=== PATIENT | female | born 1975 | race Caucasian/White ===

== ENCOUNTER 2020-03-30 13:31 | Outpatient (REF) | payer OTHER, SELFPAY | END 2020-03-30 13:32 | disposition home or self-care (01) | LOC: HO.LAB 13:31 | PROVIDERS: Visit Provider Internal Medicine | DX: Z20.828 Contact with and (suspected) exposure to other viral communicable diseases (principal) | CPT/HCPCS: C9803; U0003 ==

== ENCOUNTER 2020-04-13 16:28 | Outpatient (REF) | payer OTHER, SELFPAY | END 2020-04-13 16:29 | disposition home or self-care (01) | LOC: HO.LAB 16:28 | PROVIDERS: Visit Provider Nurse Practitioner Family | DX: N10 Acute pyelonephritis (principal) | CPT/HCPCS: 87086 ==

== ENCOUNTER 2020-09-05 06:36 | Emergency (ER) | payer OTHER, SELFPAY ==
--- NOTE | ~2020-09-05 | XR_ITS ---
EXAMINATION: XR CHEST CLINICAL INFORMATION: Chest pain COMPARISON: None TECHNIQUE: AP portable view of the chest was obtained. FINDINGS: No significant abnormality is noted involving the heart, lungs, mediastinum, bony thorax or soft tissues. XR/XR chest 1V IMPRESSION: No acute disease.
--- NOTE | 2020-09-05 07:05 | ED.CHESTPAIN ---
HPI - Chest Pain General Chief Complaint: Chest Pain Stated Complaint: Chest tightness/Dizziness Time Seen by Provider: 09/05/20 06:51 Source: patient Mode of arrival: ambulatory Limitations: no limitations History of Present Illness HPI narrative: 45 yo female no sig PMH here with chest pain x 3 days on and off feels her L arm gets tingling too, no OCPs, feels slightly short of breath as well, denies increased stress at home MD complaint: chest pain Onset (ago): day(s) (3) Timing of current episode: episodic Prior episodes: No Onset: during rest and during exertion Pain location: substernal Pain radiation: left arm Severity: moderate Quality: aching Relieving factors: nothing Exacerbating factors: nothing Associated symptoms: dyspnea Treatment prior to arrival: none Related Data Home Medications Medication Instructions Recorded Confirmed flu vac qs 2019(4 yr up)CD(PF) ml IM 04/13/20 Previous Rx's Medication Instructions Recorded ciprofloxacin HCl 500 mg tablet 500 mg PO Q12H 7 Days #14 tab 04/13/20 phenazopyridine 100 mg tablet 100 mg PO TID PRN #6 tab 04/13/20 cyclobenzaprine 10 mg PO TID PRN #14 tab 09/05/20 ferrous sulfate 325 mg PO DAILY #30 tab 09/05/20 Allergies Allergy/AdvReac Type Severity Reaction Status Date / Time almond Allergy Intermediate TONGUE Unverified 02/11/20 14:59 SWELLING apple [Apple] Allergy Intermediate TONGUE Unverified 02/11/20 14:59 SWELLING morphine [Morphine] Allergy Mild RASH, Unverified 02/11/20 14:59 stomach upset acetaminophen [Percocet] Allergy Unknown stomach Verified 10/04/17 00:00 upset oxycodone [OXYCODONE] Allergy Unknown ITCHY Unverified 02/11/20 14:59 aspirin AdvReac Unknown stomach Verified 10/04/17 00:00 upset apples Allergy Unknown anaphylaxis Uncoded 10/04/17 00:00 nuts Allergy Unknown anaphylaxis Uncoded 10/04/17 00:00 Review of Systems Review of Systems: Constitutional : No Weight loss, No Fever, No Chills ENT/Mouth : No sore throat, No Rhinorrhea Eyes: No Eye Pain, No Swelling Cardiovascular : pos Chest Pain, pos SOB, no Dyspnea on Exertion, No Orthopnea, No Edema, No Palpitations Respiratory : No Cough, No Sputum Gastrointestinal : pos Nausea, No Vomiting, No Diarrhea, No abdominal Pain, No Hematochezia, No Melena Genitourinary : No Dysuria, No Urinary Frequency Musculoskeletal : No joint pain, No Myalgias, No Joint Swelling Skin : No Skin Lesions, No rash Neuro : No Weakness, No Numbness, No Dizziness, No Headache Psych : No Anxiety/Panic, No Depression Heme/Lymph: No Bruising, No Lymphadenopathy Endocrine : No Polyuria, No Polydipsia All other systems reviewed and are negative REPLACED BY [facility] Past Medical History Attestation statement: The following information was validated with the patient. Medical History (Updated 09/05/20 @ 08:26 by Mana Snowden DO) Urinary tract infection Surgical History (Updated 09/05/20 @ 07:27 by Mana Snowden DO) H/O: hysterectomy Social History Social History (Updated 09/05/20 @ 07:27 by Mana Snowden DO) Smoking Status: Never smoker Use of substances other than those prescribed or required for medical reasons: No Advance Directives: Yes Advance Directives Information Provided: Yes Advance Directives on File: No Physical Exam Vital Signs: Vital Signs: Last Vital Signs Temp 98.8 F 09/05/20 07:18 Pulse 90 09/05/20 07:18 Resp 18 09/05/20 07:18 BP 143/68 H 09/05/20 07:18 Pulse Ox 100 09/05/20 07:18 Body Mass Index 31.3 Appearance: Alert. Oriented X3. No acute distress. Eyes: Pupils equal, round and reactive to light. ENT: Pharynx normal. Neck: Normal inspection. Neck supple. CVS: Normal heart rate and rhythm. Pulses normal. Respiratory: No respiratory distress. Breath sounds normal. Abdomen: Soft and nontender. Skin: Skin warm and dry. Normal skin color. Normal skin turgor. Extremities: No lower extremity edema. No calf ttp Neuro: Oriented X 3. No motor deficit. No sensory deficit. Course Course Course Narrative: anemia - likely Fe will replace, no need for transfusion has no HD instability - negative work up at this time stable for DC MDM - Chest Pain MDM Narrative Medical decision making narrative: 45 yo female no sig PMH and no ACS risk factors PERC negative here with 3 days of intermittent chest pain at this time will need troponin x 1, her BPs are symmetric R 136/68 and L 143/68 doubt dissection, she is NV intact, bounding L sided radial pulse and CMS intact, atypical chest pain in nature, dispo per results and findings - labs EKG CXR ordered Lab Data Result diagrams: 09/05/20 07:36 09/05/20 07:36 Labs: Lab Results 09/05/20 09/05/20 09/05/20 Range/Units 07:36 07:36 07:36 WBC 6.4 (4.8-10.8) X10*3/uL RBC 4.45 (4.20-5.50) X10*6/uL Hgb 9.8 L (12.0-16.0) g/dl Hct 33.2 L (37-47) % MCV 74.6 L (80-98) fL MCH 22.0 L (27.0-33.0) pg MCHC 29.5 L (31.0-35.0) g/dl RDW 15.6 (11.0-16.0) % Plt Count 218 (160-400) X10*3/uL MPV 10.5 (9.4-12.3) fL Immature Gran % (Auto) 0.3 (0.0-0.4) % Neut % (Auto) 76.7 H (45-73) % Lymph % (Auto) 14.4 L (20-40) % [place] % (Auto) 6.1 (2-11) % Eos % (Auto) 2.2 (0-4) % Baso % (Auto) 0.3 (0-2) % Lymph # (Auto) 0.9 L (1.2-4.9) X10*3/uL [place] # (Auto) 0.4 (0.1-1.2) X10*3/uL Eos # (Auto) 0.1 (0.0-0.4) X10*3/uL Baso # (Auto) 0.0 (0.0-0.2) X10*3/uL Abs Immat Gran (auto) 0.02 (0.00-0.03) X10*3/uL Absolute Neuts (auto) 4.9 (2.0-8.3) X10*3/uL Absolute Nucleated RBC 0.000 (0.0-0.012) X10*3/uL Nucleated RBC % (auto) 0.0 (0.0-0.2) /100WBC PT 12.8 (10.8-13.0) SEC INR 1.1 (0.9-1.1) APTT 31.5 (24.1-38.0) SEC Troponin I High Sens < 3.5 (<3.5-17.0) ng/L Lipase COVID-19 ([facility]) (Negative) COVID-19 Clin Com 09/05/20 09/05/20 Range/Units 07:36 07:36 WBC (4.8-10.8) X10*3/uL RBC (4.20-5.50) X10*6/uL Hgb (12.0-16.0) g/dl Hct (37-47) % MCV (80-98) fL MCH (27.0-33.0) pg MCHC (31.0-35.0) g/dl RDW (11.0-16.0) % Plt Count (160-400) X10*3/uL MPV (9.4-12.3) fL Immature Gran % (Auto) (0.0-0.4) % Neut % (Auto) (45-73) % Lymph % (Auto) (20-40) % [place] % (Auto) (2-11) % Eos % (Auto) (0-4) % Baso % (Auto) (0-2) % Lymph # (Auto) (1.2-4.9) X10*3/uL [place] # (Auto) (0.1-1.2) X10*3/uL Eos # (Auto) (0.0-0.4) X10*3/uL Baso # (Auto) (0.0-0.2) X10*3/uL Abs Immat Gran (auto) (0.00-0.03) X10*3/uL Absolute Neuts (auto) (2.0-8.3) X10*3/uL Absolute Nucleated RBC (0.0-0.012) X10*3/uL Nucleated RBC % (auto) (0.0-0.2) /100WBC PT (10.8-13.0) SEC INR (0.9-1.1) APTT (24.1-38.0) SEC Troponin I High Sens (<3.5-17.0) ng/L Lipase Cancelled COVID-19 ([facility]) Negative (Negative) COVID-19 Clin Com See Note ECG Data ECG #1: Attestation: I personally reviewed and interpreted this ECG as follows: ECG interpretation date: 09/05/20 ECG interpretation time: 07:41 Interpretation: Rate: 67 Rhythm: NSR [place]: left Normal P waves. Normal NUBIA. Normal QRS complex. ST T wave : normal, no BASIM qTC: normal prior studies: no acute ischemia The study has been interpreted contemporaneously by me. . Discharge Plan Discharge Clinical Impression: Atypical chest pain Iron (Fe) deficiency anemia Qualifiers: Iron deficiency anemia type: unspecified iron deficiency Qualified Code(s): D50.9 - Iron deficiency anemia, unspecified Patient Disposition: Home, Self-Care Instructions: Chest Pain (ED), Anemia (ED) Additional Instructions: return to ED for any worsening symptoms or concerns Prescriptions: New cyclobenzaprine 10 mg tablet 10 mg PO TID PRN (Reason: muscle spasm) Qty: 14 RF: 0 ferrous sulfate 325 mg (65 mg iron) tablet 325 mg PO DAILY Qty: 30 RF: 0 No Action Flucelvax Quad (PF) 60 mcg (15 mcg x 4)/0.5 mL syringe IM RF: 0 ciprofloxacin HCl [Cipro] 500 mg tablet 500 mg PO Q12H 7 Days Qty: 14 RF: 0 phenazopyridine [Pyridium] 100 mg tablet 100 mg PO TID PRN (Reason: pain) Qty: 6 RF: 0 Referrals: James Bro MD [Primary Care Provider] - 5 days Stand Alone Forms: Work/School Release
[2020-09-05 07:18] VITALS: BP 143/68; PULSE 90; RESP 18; TEMP 37.1; O2SAT 100; BMI 31.3
--- NOTE | 2020-09-05 07:22 | ECG_ITS ---
Test Reason : CHEST PAIN Blood Pressure : / mmHG Vent. Rate : 067 BPM Atrial Rate : 067 BPM P-R Int : 126 ms QRS Dur : 074 ms QT Int : 368 ms P-R-T Axes : 021 002 -05 degrees QTc Int : 388 ms Normal sinus rhythm Normal ECG When compared with ECG of 25-SEP-2017 12:15, Nonspecific T wave abnormality no longer evident in Lateral leads Referred By: Mana Snowden Electronically Signed By:KEIRA CAMPUZANO
[2020-09-05 07:43] LABS: MANUAL DIFF FLAG NO
[2020-09-05 07:47] LABS: Basophils Percent Auto 0.3 % (0-2); Eosinophils Absolute Auto 0.1 X10*3/uL (0.0-0.4); Eosinophils Percent Auto 2.2 % (0-4); Hematocrit 33.2 % (37-47); Hemoglobin 9.8 g/dl (12.0-16.0); Imm Gran Abs Auto 0.02 X10*3/uL (0.00-0.03); Imm Gran Pct Auto 0.3 % (0.0-0.4); Lymphocytes Absolute Auto 0.9 X10*3/uL (1.2-4.9); Lymphocytes Percent Auto 14.4 % (20-40); Mean Corpuscular HGB Conc 29.5 g/dl (31.0-35.0); Mean Corpuscular Volume 74.6 fL (80-98); Mean Platelet Volume 10.5 fL (9.4-12.3); Monocytes Absolute Auto 0.4 X10*3/uL (0.1-1.2); Monocytes Percent Auto 6.1 % (2-11); Neutrophils Absolute Auto 4.9 X10*3/uL (2.0-8.3); Neutrophils Percent Auto 76.7 % (45-73); Platelet Count 218 X10*3/uL (160-400); Red Blood Count 4.45 X10*6/uL (4.20-5.50); Red Cell Distribution Width 15.6 % (11.0-16.0); White Blood Count 6.4 X10*3/uL (4.8-10.8)
[2020-09-05 07:54] LABS: INTERNATIONAL NORM RATIO 1.1 (0.9-1.1); Prothrombin Time 12.8 SEC (10.8-13.0)
[2020-09-05 07:56] LABS: Partial Thromboplastin Time 31.5 SEC (24.1-38.0)
[2020-09-05 08:04] LABS: COVID-19 Test Negative (Negative)
[2020-09-05 08:17] LABS: Troponin-I High Sensitivity < 3.5 ng/L (<3.5-17.0)
[2020-09-05 08:27] LABS: Alanine Aminotransferase 19 U/L (0-31); Albumin Level 4.2 g/dL (3.5-5.0); Alkaline Phosphatase 54 U/L (39-117); Anion Gap 16 (12-20); Aspartate Amino Transferase 21 U/L (5-31); Bilirubin Direct 0.2 mg/dL (0.0-0.5); Bilirubin Total 0.3 mg/dL (0.0-1.0); Blood Urea Nitrogen 15 mg/dL (9-16); Carbon Dioxide 23 mmol/L (22-29); Chloride 105 mmol/L (96-108); Creatinine Clr Calc Pharmacy 88.4; Estimated Glomerular Filt Rate > 60; Glucose Random 105 mg/dL (60-115); Lipase 24 U/L (8-78); Magnesium 2.1 mg/dL (1.6-2.6); Potassium 4.5 mmol/L (3.3-5.1); Sodium 139 mmol/L (135-145); Total Protein 7.4 g/dL (6.5-8.0)
== END 2020-09-05 10:16 | disposition home or self-care (01) ==
PROVIDERS: Emergency Provider Emergency Medicine; PCP Internal Medicine
DX: R07.89 Other chest pain (principal); D50.9 Iron deficiency anemia, unspecified; Z20.822 Contact with and (suspected) exposure to COVID-19; R42 Dizziness and giddiness; Z87.440 Personal history of urinary (tract) infections
CPT/HCPCS: 36415; 71045; 80048; 80076; 83690; 83735; 84484; 85025; 85610; 85730; 87635; 93005; 99283

== ENCOUNTER 2020-11-29 12:32 | Outpatient (REF) | payer OTHER, SELFPAY | END 2020-11-29 12:33 | disposition home or self-care (01) | LOC: HO.LAB 12:32 | PROVIDERS: PCP Internal Medicine; Visit Provider Internal Medicine | DX: Z20.822 Contact with and (suspected) exposure to COVID-19 (principal) | CPT/HCPCS: U0003; U0005 ==

== ENCOUNTER 2021-03-24 13:05 | Emergency (ER) | payer OTHER, SELFPAY ==
[2021-03-24] VITALS (10 sets, daily range): BP systolic 98–140; BP diastolic 46–78; PULSE 67–94; RESP 16–18; TEMP 36.4–37.1; O2SAT 97–100; BMI 36.1
--- NOTE | ~2021-03-24 | US_ITS ---
EXAM: Pelvic Ultrasound CLINICAL INDICATION: Vaginal bleeding with clots. Rule out fibroid versus cysts. COMPARISON: None TECHNIQUE: The pelvis was evaluated using transabdominal and transvaginal imaging. FINDINGS: The uterus measures 9.3 x 5.1 x 5.7 cm in longitudinal by AP by transverse dimension. The endometrial stripe is not thickened and measures 1 cm. The cervix measures approximately 3.2 cm in length. Small nabothian cysts are noted within the cervix. Fluid is noted within the cervical canal. Ill-defined hypoechoic, avascular focus within the cervix is nonspecific but given provided history, likely blood products. The left ovary measures approximately 2.3 x 1.4 x 2.3 cm and is normal. The right ovary measures approximately 2.4 x 2.1 x 2.4 cm and is also normal. There is no free fluid in the pelvis. US/US pelvic and transvaginal IMPRESSION: -Normal thickness endometrial stripe. -Abnormal appearance of the cervix. This likely represents fluid/blood products, given provided history. Clinical correlation is recommended. Direct inspection versus follow-up imaging can be obtained as deemed clinically appropriate.
--- NOTE | 2021-03-24 16:19 | ED_ITS ---
HPI - Female Genitourinary General Chief complaint: Vaginal Bleeding Stated complaint: vaginal bleeding Time Seen by Provider: 03/24/21 16:07 Source: patient Mode of arrival: ambulatory History of Present Illness HPI Narrative: 46-year-old female with a past medical history of gastric sleeve, , tubal ligation, presenting to the ED complaining of vaginal bleeding x 15 days. Admits initially started at heavy changing pads Q 1 hour with clots, now changing every couple hours with associated lightheadedness/generalized fatigue/weakness. Reports LMP 928. Denies abdominal pain, nausea, vomiting, vaginal discharge, dysuria, hematuria, flank pain MD elicited complaint: vaginal bleeding Related Data Previous Rx's Medication Instructions Recorded propranolol 10 mg tablet 10 mg PO BID PRN 7 Days #14 tab 02/28/21 cefuroxime axetil 250 mg tablet 250 mg PO BID 7 Days #14 tab 03/25/21 medroxyprogesterone 10 mg tablet 10 mg PO DAILY #30 tab 03/25/21 (Provera) Allergies Allergy/AdvReac Type Severity Reaction Status Date / Time almond Allergy Intermediate TONGUE Verified 02/28/21 11:34 SWELLING apple [Apple] Allergy Intermediate TONGUE Verified 02/28/21 11:34 SWELLING morphine [Morphine] Allergy Mild RASH, Verified 02/28/21 11:34 stomach upset acetaminophen [Percocet] Allergy Unknown stomach Verified 02/28/21 11:34 upset oxycodone [OXYCODONE] Allergy Unknown ITCHY Verified 02/28/21 11:34 aspirin AdvReac Unknown stomach Verified 02/28/21 11:34 upset apples Allergy Unknown anaphylaxis Uncoded 10/04/17 00:00 nuts Allergy Unknown anaphylaxis Uncoded 10/04/17 00:00 Review of Systems Review of Systems: Constitutional: No Fever, No Chills, +Fatigue, + Malaise ENT/Mouth: No Ear Pain, No Nasal Congestion, No Hoarseness, No sore throat Eyes: No Eye Pain, No Swelling Cardiovascular: No Chest Pain, No SOB, No Palpitations Respiratory: No Cough, No Dyspnea Gastrointestinal: No Nausea, No Vomiting, No Diarrhea, No Constipation, No Abdominal pain Genitourinary: + irregular bleeding, no vaginal discharge, No Dysuria, No Urinary Frequency, No Hematuria,No Flank Pain Musculoskeletal: No joint pain, No Myalgias, No Joint Swelling Skin: No Skin Lesions, No rash Neuro: + Weakness, No Loss of Consciousness, + lightheadedness, No Headache Yes all other systems are reviewed and are negative [facility] Past Medical History Attestation statement: The following information was validated with the patient. Medical History (Updated 03/25/21 @ 00:11 by THEO Naranjo) Urinary tract infection Surgical History (Updated 02/28/21 @ 11:42 by Sylvester Chilel PA-C) H/O bariatric surgery H/O tubal ligation Family History Family History (Updated 02/28/21 @ 11:43 by Sylvester Chilel PA-C) Mother DMII (diabetes mellitus, type 2) CAD (coronary artery disease) Social History Social History (Updated 02/28/21 @ 11:43 by Sylvester Chilel PA-C) Housing: Apartment Alcohol intake: never Patient Tobacco Use Status: Never used Tobacco Tobacco use type: Cigarette e-Cigarette/Vaping Use: Never Used Second Hand Smoke Exposure: No Advance Directives: No Advance Directives Information Provided: Yes service: No Current occupational status: employed 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 Physical Exam Vital Signs: Vital Signs: Last Vital Signs Temp 98 F 03/24/21 21:31 Pulse 67 03/24/21 21:47 Resp 16 03/24/21 21:47 BP 115/54 L 03/24/21 21:47 Pulse Ox 100 03/24/21 21:47 Body Mass Index 36.1 Const: General: cooperative, healthy appearing and no acute distress Orientation/consciousness: patient oriented x3 Limitations: no limitations HENMT: Head: Yes normal to inspection Ears: hearing grossly normal bilaterally General nose exam: Normal external nose present Face and sinus: Yes normal facial exam Eyes: General: appearance normal, both eyes and all related structures EOM: EOMs intact bilaterally Neck: Neck: Yes normal visual inspection Resp: Effort & Inspection: normal respiratory effort and no respiratory distress Cardio: Rate: regular rate Heart sounds: S1 normal heart sound present and S2 normal heart sound present GI: Inspection: Yes normal to inspection Palpation (GI): Soft to palpation, nontender, no guarding and not rigid : General: Yes no CVA tenderness Speculum Exam - Vagina: vaginal bleeding Speculum Exam - Cervix: Cervical os closed Bimanual exam- vagina & uterus: normal bimanual exam and no cervical motion tenderness Bimanual Exam- Adnexa, other: normal adnexae and No adnexal tenderness OB/external & speculum: vaginal bleeding Back/Spine/Pelvis: Back: no CVA tenderness Skin: Rashes: no rashes Wounds: no wounds Neuro: General: patient oriented x3 Gait exam (Neuro): Normal gait present Extrem: General: Yes normal to inspection Course Course Course Narrative: -1819--no leukocytosis. H/H lower than baseline at 8.5/29.2 > will obtain 3 hour repeat and orthostatic vital signs -labs otherwise unremarkable. UA infected > patient given 1st dose of Ceftin in the ED US pelvic and transvaginal IMPRESSION: -Normal thickness endometrial stripe. -Abnormal appearance of the cervix. This likely represents fluid/blood products, given provided history. Clinical correlation is recommended. Direct inspection versus follow-up imaging can be obtained as deemed clinically appropriate. -1911--patient with additional drop in H&H to 7.7/25.9, will discuss case with OBGYN. Orthostatic vital signs negative -case discussed with Dr. Nolasco, recommended transfuse 1 unit rbc's as on PE patient not actively hemorrhaging, has not changed pad since ED arrival 3 hours ago, and 10 mg of Provera daily, and have patient follow-up in the office next week for biopsy/further workup. Transfusion consent signed and in patient's chart -0005--transfusion completed. Discussed worrisome signs and symptoms and strict return precautions, and need to follow-up with OBGYN next week, patient verbalized understanding feel safe for discharge home MDM - Female Genitourinary MDM Narrative Medical decision making narrative: 46-year-old female with a past medical history of gastric sleeve, , tubal ligation, presenting to the ED c omplaining of vaginal bleeding x 15 days. On exam vital signs stable, NAD/nontoxic, abdomen soft/nontender, no CVAT. On pelvic exam vaginal bleeding noted, No hemorrhage, bleeding cleared with Q-tips. No CMT or adnexal tenderness. Concern for DUB vs ?/miscarriage vs anemia vs uterine fib roid Plan: Labs, UA, , pelvic ultrasound Medical Records Attestation: I reviewed the patient's medical records. Lab Data Attestation: I reviewed the patient's lab results. Result diagrams: 03/24/21 18:36 03/24/21 16:22 Labs: Lab Results 03/24/21 03/24/21 03/24/21 Range/Units 16:22 16:22 16:22 WBC 8.0 (4.8-10.8) X10*3/uL RBC 3.90 L (4.20-5.50) X10*6/uL Hgb 8.5 L (12.0-16.0) g/dl Hct 29.2 L (37-47) % MCV 74.9 L (80-98) fL MCH 21.8 L (27.0-33.0) pg MCHC 29.1 L (31.0-35.0) g/dl RDW 15.4 (11.0-16.0) % Plt Count 326 D (160-400) X10*3/uL MPV 9.8 (9.4-12.3) fL Immature Gran % (Auto) 0.2 (0.0-0.4) % Neut % (Auto) 69.6 (45-73) % Lymph % (Auto) 19.6 L (20-40) % [place] % (Auto) 6.0 (2-11) % Eos % (Auto) 4.1 H (0-4) % Baso % (Auto) 0.5 (0-2) % Lymph # (Auto) 1.6 (1.2-4.9) X10*3/uL [place] # (Auto) 0.5 (0.1-1.2) X10*3/uL Eos # (Auto) 0.3 (0.0-0.4) X10*3/uL Baso # (Auto) 0.0 (0.0-0.2) X10*3/uL Abs Immat Gran (auto) 0.02 (0.00-0.03) X10*3/uL Absolute Neuts (auto) 5.6 (2.0-8.3) X10*3/uL Absolute Nucleated RBC 0.000 (0.0-0.012) X10*3/uL Nucleated RBC % (auto) 0.0 (0.0-0.2) /100WBC Sodium 140 (135-145) mmol/L Potassium 4.2 (3.3-5.1) mmol/L Chloride 109 H (96-108) mmol/L Carbon Dioxide 23 (22-29) mmol/L Anion Gap 12 (12-20) BUN 18 H (9-16) mg/dL Creatinine 0.70 (0.5-1.4) mg/dL Estim Creat Clear Calc 94.5 Estimated GFR > 60 Random Glucose 96 (60-115) mg/dL Calcium 8.8 (8.4-10.2) mg/dL Magnesium 2.0 (1.6-2.6) mg/dL Total Bilirubin 0.2 (0.0-1.0) mg/dL Direct Bilirubin < 0.2 (0.0-0.5) mg/dL AST 22 (5-31) U/L ALT 19 (0-31) U/L Alkaline Phosphatase 56 (39-117) U/L Total Protein 7.5 (6.5-8.0) g/dL Albumin 4.2 (3.5-5.0) g/dL Urine Color YELLOW Urine Appearance HAZY Urine pH 7.0 (5.0-8.0) Ur Specific [place] 1.025 (1.005-1.025) Urine Protein TRACE (NEG-TRACE) MG/DL Urine Glucose (UA) NEG (NEG) MG/DL Urine Ketones NEG (NEG) MG/DL Urine Blood 3+ H (NEG) Urine Nitrite NEG (NEG) Ur Leukocyte Esterase 2+ H (NEG) Urine RBC 50-75 H (0) /HPF Urine WBC 15-29 H (0-4) /HPF Ur Squamous Epith Cells 2+ /LPF Urine Bacteria TRACE /LPF Urine Test (NEGATIVE) Blood Type Antibody Screen Crossmatch 03/24/21 03/24/21 03/24/21 Range/Units 16:22 18:36 20:12 WBC 6.4 (4.8-10.8) X10*3/uL RBC 3.48 L (4.20-5.50) X10*6/uL Hgb 7.7 L (12.0-16.0) g/dl Hct 25.9 L (37-47) % MCV 74.4 L (80-98) fL MCH 22.1 L (27.0-33.0) pg MCHC 29.7 L (31.0-35.0) g/dl RDW 15.4 (11.0-16.0) % Plt Count 287 (160-400) X10*3/uL MPV 10.2 (9.4-12.3) fL Immature Gran % (Auto) 0.2 (0.0-0.4) % Neut % (Auto) 64.6 (45-73) % Lymph % (Auto) 23.5 (20-40) % [place] % (Auto) 7.2 (2-11) % Eos % (Auto) 4.2 H (0-4) % Baso % (Auto) 0.3 (0-2) % Lymph # (Auto) 1.5 (1.2-4.9) X10*3/uL [place] # (Auto) 0.5 (0.1-1.2) X10*3/uL Eos # (Auto) 0.3 (0.0-0.4) X10*3/uL Baso # (Auto) 0.0 (0.0-0.2) X10*3/uL Abs Immat Gran (auto) 0.01 (0.00-0.03) X10*3/uL Absolute Neuts (auto) 4.2 (2.0-8.3) X10*3/uL Absolute Nucleated RBC 0.000 (0.0-0.012) X10*3/uL Nucleated RBC % (auto) 0.0 (0.0-0.2) /100WBC Sodium (135-145) mmol/L Potassium (3.3-5.1) mmol/L Chloride (96-108) mmol/L Carbon Dioxide (22-29) mmol/L Anion Gap (12-20) BUN (9-16) mg/dL Creatinine (0.5-1.4) mg/dL Estim Creat Clear Calc Estimated GFR Random Glucose (60-115) mg/dL Calcium (8.4-10.2) mg/dL Magnesium (1.6-2.6) mg/dL Total Bilirubin (0.0-1.0) mg/dL Direct Bilirubin (0.0-0.5) mg/dL AST (5-31) U/L ALT (0-31) U/L Alkaline Phosphatase (39-117) U/L Total Protein (6.5-8.0) g/dL Albumin (3.5-5.0) g/dL Urine Color Urine Appearance Urine pH (5.0-8.0) Ur Specific [place] (1.005-1.025) Urine Protein (NEG-TRACE) MG/DL Urine Glucose (UA) (NEG) MG/DL Urine Ketones (NEG) MG/DL Urine Blood (NEG) Urine Nitrite (NEG) Ur Leukocyte Esterase (NEG) Urine RBC (0) /HPF Urine WBC (0-4) /HPF Ur Squamous Epith Cells /LPF Urine Bacteria /LPF Urine Test NEGATIVE (NEGATIVE) Blood Type A Positive Antibody Screen NEGATIVE Crossmatch See Detail Discharge Plan Discharge Clinical Impression: Vaginal bleeding UTI (urinary tract infection) Qualifiers: Urinary tract infection type: acute cystitis Hematuria presence: with hematuria Qualified Code(s): N30.01 - Acute cystitis with hematuria Anemia Qualifiers: Anemia type: unspecified type Qualified Code(s): D64.9 - Anemia, unspecified Patient Disposition: Home, Self-Care Instructions: Anemia (ED), Menorrhagia (ED), Urinary Tract Infection in Women (ED) Additional Instructions: You are anemic, your blood count is low from the amount of vaginal bleeding you are having, you were transfused 1 unit of blood today in the ED Provera should be taken daily as prescribed which will help decrease her bleeding You also have a urinary tract infection, Ceftin as an antibiotic Please call the OBGYN tomorrow to make a follow-up appointment for next week If her symptoms persist or worsen, your vaginal bleeding increases, you develop abdominal pain, nausea, vomiting, lightheadedness, chest pain or shortness of breath return to the ED immediately Prescriptions: New cefuroxime axetil 250 mg tablet 250 mg PO BID 7 Days Qty: 14 RF: 0 medroxyprogesterone [Provera] 10 mg tablet 10 mg PO DAILY Qty: 30 RF: 0 No Action propranolol 10 mg tablet 10 mg PO BID PRN (Reason: anxiety) 7 Days Qty: 14 RF: 0 Referrals: Michael Nolasco MD [Physician] - 2 days (Call tomorrow to make an appointment)
[2021-03-24 16:26] LABS: MANUAL DIFF FLAG NO
[2021-03-24 16:32] LABS: Basophils Percent Auto 0.5 % (0-2); Eosinophils Absolute Auto 0.3 X10*3/uL (0.0-0.4); Eosinophils Percent Auto 4.1 % (0-4); Hematocrit 29.2 % (37-47); Hemoglobin 8.5 g/dl (12.0-16.0); Imm Gran Abs Auto 0.02 X10*3/uL (0.00-0.03); Imm Gran Pct Auto 0.2 % (0.0-0.4); Lymphocytes Absolute Auto 1.6 X10*3/uL (1.2-4.9); Lymphocytes Percent Auto 19.6 % (20-40); Mean Corpuscular HGB Conc 29.1 g/dl (31.0-35.0); Mean Corpuscular Hemoglobin 21.8 pg (27.0-33.0); Mean Corpuscular Volume 74.9 fL (80-98); Mean Platelet Volume 9.8 fL (9.4-12.3); Monocytes Absolute Auto 0.5 X10*3/uL (0.1-1.2); Neutrophils Absolute Auto 5.6 X10*3/uL (2.0-8.3); Neutrophils Percent Auto 69.6 % (45-73); Platelet Count 326 X10*3/uL (160-400); Red Cell Distribution Width 15.4 % (11.0-16.0)
[2021-03-24 16:34] LABS: Appearance Urine HAZY; Color Urine YELLOW; Glucose Urine UA NEG (NEG); Leukocyte Esterase Urine 2+ (NEG); Nitrite Urine NEG (NEG); Specific Gravity - Urine 1.025 (1.005-1.025); UACC Culture Trigger YES; UPreg QC Valid YES; Urine Blood 3+ (NEG); Urine Ketones NEG (NEG); Urine Pregnancy NEGATIVE (NEGATIVE); Urine Protein TRACE MG/DL (NEG-TRACE)
[2021-03-24 16:45] LABS: Alanine Aminotransferase 19 U/L (0-31); Albumin Level 4.2 g/dL (3.5-5.0); Alkaline Phosphatase 56 U/L (39-117); Anion Gap 12 (12-20); Aspartate Amino Transferase 22 U/L (5-31); Bilirubin Direct < 0.2 mg/dL (0.0-0.5); Bilirubin Total 0.2 mg/dL (0.0-1.0); Blood Urea Nitrogen 18 mg/dL (9-16); Calcium 8.8 mg/dL (8.4-10.2); Carbon Dioxide 23 mmol/L (22-29); Chloride 109 mmol/L (96-108); Creatinine Clr Calc Pharmacy 94.5; Estimated Glomerular Filt Rate > 60; Glucose Random 96 mg/dL (60-115); Potassium 4.2 mmol/L (3.3-5.1); Sodium 140 mmol/L (135-145); Total Protein 7.5 g/dL (6.5-8.0)
[2021-03-24] MEDS: 0.9 % Sodium Chloride 1,000 ML 999 ML IVCONT (16:45)
[2021-03-24 16:53] LABS: Bacteria Urine TRACE /LPF; RBC Urine 50-75 /HPF (0); Squamous Epithelial Cell Urine 2+ /LPF
[2021-03-24 18:43] LABS: MANUAL DIFF FLAG NO
[2021-03-24 18:44] LABS: Basophils Percent Auto 0.3 % (0-2); Eosinophils Absolute Auto 0.3 X10*3/uL (0.0-0.4); Eosinophils Percent Auto 4.2 % (0-4); Hematocrit 25.9 % (37-47); Hemoglobin 7.7 g/dl (12.0-16.0); Imm Gran Abs Auto 0.01 X10*3/uL (0.00-0.03); Imm Gran Pct Auto 0.2 % (0.0-0.4); Lymphocytes Absolute Auto 1.5 X10*3/uL (1.2-4.9); Lymphocytes Percent Auto 23.5 % (20-40); Mean Corpuscular HGB Conc 29.7 g/dl (31.0-35.0); Mean Corpuscular Hemoglobin 22.1 pg (27.0-33.0); Mean Corpuscular Volume 74.4 fL (80-98); Mean Platelet Volume 10.2 fL (9.4-12.3); Monocytes Absolute Auto 0.5 X10*3/uL (0.1-1.2); Monocytes Percent Auto 7.2 % (2-11); Neutrophils Absolute Auto 4.2 X10*3/uL (2.0-8.3); Neutrophils Percent Auto 64.6 % (45-73); Platelet Count 287 X10*3/uL (160-400); Red Blood Count 3.48 X10*6/uL (4.20-5.50); Red Cell Distribution Width 15.4 % (11.0-16.0); White Blood Count 6.4 X10*3/uL (4.8-10.8)
--- NOTE | 2021-03-24 19:25 | PM.GYNCN ---
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 Her last menstrual period was 02/21, few hours prior to presentation, the patient start having to change a pad every hour since then her bleeding slowed down cc:: CC: LAY OUT FORMER - Review of Systems Review of Systems ROS Unobtainable: All systems reviewed & are unremarkable except as noted in HPI and below Cardiovascular: Denies Palpatations, Loss of consciousness or Chest pain Respiratory: Denies Cough, Wheezing or Shortness of breath Musculoskeletal: Denies Low back pain Gastrointestinal: Denies Heartburn, Constipation, Diarrhea, Nausea or Vomiting Genitourinary: Denies Pain with urination, Burning with urination or Urinary frequency Neurological: Denies Migranes Psychological: Denies Depression OB PMFSH Past Medical History Medical History (Updated 03/24/21 @ 18:25 by HTEO Naranjo) Urinary tract infection Family History Family History (Updated 02/28/21 @ 11:43 by Sylvester Chilel PA-C) Mother DMII (diabetes mellitus, type 2) CAD (coronary artery disease) Surgical History Surgical History (Updated 02/28/21 @ 11:42 by Sylvester Chilel PA-C) H/O bariatric surgery H/O tubal ligation Social History Social History (Updated 02/28/21 @ 11:43 by Sylvester Chilel PA-C) Housing: Apartment Alcohol intake: never Patient Tobacco Use Status: Never used Tobacco Tobacco use type: Cigarette e-Cigarette/Vaping Use: Never Used Second Hand Smoke Exposure: No Advance Directives: No Advance Directives Information Provided: Yes service: No Current occupational status: employed 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 Meds Allergies Allergy/AdvReac Type Severity Reaction Status Date / Time almond Allergy Intermediate TONGUE Verified 02/28/21 11:34 SWELLING apple [Apple] Allergy Intermediate TONGUE Verified 02/28/21 11:34 SWELLING morphine [Morphine] Allergy Mild RASH, Verified 02/28/21 11:34 stomach upset acetaminophen [Percocet] Allergy Unknown stomach Verified 02/28/21 11:34 upset oxycodone [OXYCODONE] Allergy Unknown ITCHY Verified 02/28/21 11:34 aspirin AdvReac Unknown stomach Verified 02/28/21 11:34 upset apples Allergy Unknown anaphylaxis Uncoded 10/04/17 00:00 nuts Allergy Unknown anaphylaxis Uncoded 10/04/17 00:00 PAINT FACTORY WORKER Physical Exam Vitals Vital signs: Temp Pulse Resp BP Pulse Ox 97.9 F 82 16 123/60 97 03/24/21 19:07 03/24/21 19:07 03/24/21 19:07 03/24/21 19:07 03/24/21 19:07 Body Mass Index 36.1 Constitutional General Appearance: Healthy appearing, Well-nourished and Well-developed Psychiatric Mood and Affect: active and alert, normal mood and normal affect Skin Appearance: No rashes and No lesions Lungs Respiratory Effort: No intercostal retractions Auscultation: Clear to auscultation Cardiovascular Auscultation: RRR Abdomen Auscultation/Inspection/Palpation: Normal bowel sounds, Soft, Non-distended and No tenderness Additional Comments: Pelvic exam done by THEO Naranjo no evidence of active bleeding minimal blood per vagina PAINT FACTORY WORKER - Results Labs CBC & Chem 7: 03/24/21 18:36 03/24/21 16:22 Labs: Short CBC 03/24/21 03/24/21 Range/Units 16:22 18:36 WBC 8.0 6.4 (4.8-10.8) X10*3/uL Hgb 8.5 L 7.7 L (12.0-16.0) g/dl Hct 29.2 L 25.9 L (37-47) % Plt Count 326 D 287 (160-400) X10*3/uL BMP 03/24/21 16:22 Sodium 140 Potassium 4.2 Chloride 109 H Carbon Dioxide 23 BUN 18 H Creatinine 0.70 Calcium 8.8 Liver Function 03/24/21 Range/Units 16:22 Total Bilirubin 0.2 (0.0-1.0) mg/dL Direct Bilirubin < 0.2 (0.0-0.5) mg/dL AST 22 (5-31) U/L ALT 19 (0-31) U/L Alkaline Phosphatase 56 (39-117) U/L Albumin 4.2 (3.5-5.0) g/dL Urine 03/24/21 03/24/21 Range/Units 16:22 16:22 Urine Color YELLOW Urine Appearance HAZY Urine pH 7.0 (5.0-8.0) Ur Specific [place] 1.025 (1.005-1.025) Urine Protein TRACE (NEG-TRACE) MG/DL Urine Glucose (UA) NEG (NEG) MG/DL Urine Test NEGATIVE (NEGATIVE) Imaging US - abdomen: Radiologist's impression: ITS Impressions Pelvic/Transvag US 03/24/21 16:40 IMPRESSION: -Normal thickness endometrial stripe. -Abnormal appearance of the cervix. This likely represents fluid/blood products, given provided history. Clinical correlation is recommended. Direct inspection versus follow-up imaging can be obtained as deemed clinically appropriate. Assessment and Plan (1) Vaginal bleeding: Status: Acute Urine test done in the emergency room was negative, hemoglobin dropped from 8.5-7.3 in4 hours in the emergency room Since the Pelvic exam did not show any evidence of active bleeding and vital signs are stable, I recommended 1 unit of blood transfusion, observation for the coming few hours, if no evidence of active vaginal bleeding, and the patient is stable to be discharged, discharge the patient on Provera 10 mg p.o. q.d. , iron sulfate 325 mg p.o. t.i.d., to follow-up in the office few days for completion of the workup including endometrial biopsy to rule out endometrial hyperplasia or malignancy. Instructions to be given to patient to call or come back to emergency room n case of recurrence of vaginal bleeding.
--- NOTE | 2021-03-24 19:37 | PC.NURSE ---
CALLED TO PHARMACY PENDING MEDICATION TO COME
[2021-03-24] MEDS: medroxyPROGESTERone Acetate 5 MG TABLET 10 MG PO (20:29)
[2021-03-25 00:20] VITALS: BP 129/70; PULSE 82; RESP 18; TEMP 36.6; O2SAT 98
== END 2021-03-25 00:28 | disposition home or self-care (01) ==
PROVIDERS: Physician Assistant; Emergency Provider Emergency Medicine; PCP Physician Assistant
DX: N30.01 Acute cystitis with hematuria (principal); D64.9 Anemia, unspecified; N93.9 Abnormal uterine and vaginal bleeding, unspecified; Z98.84 Bariatric surgery status
CPT/HCPCS: 36415; 36430; 76830; 76856; 80048; 80076; 81001; 81025; 83735; 85025; 86850; 86900; 86901; 86923; 87086; 87147; 96360; 99284; 99285; P9016

== ENCOUNTER 2021-03-29 13:38 | Outpatient (REF) | payer OTHER, SELFPAY ==
[2021-03-29 14:50] LABS: Hemoglobin 9.8 g/dl (12.0-16.0); Mean Corpuscular HGB Conc 29.7 g/dl (31.0-35.0); Mean Corpuscular Hemoglobin 22.6 pg (27.0-33.0); Mean Corpuscular Volume 76.2 fL (80.0-98.0); Mean Platelet Volume 10.3 fL (9.4-12.3); Platelet Count 309 X10*3/uL (160-400); Red Blood Count 4.33 X10*6/uL (4.20-5.50); Red Cell Distribution Width 16.4 % (11.0-16.0); White Blood Count 7.8 X10*3/uL (4.8-10.8)
[2021-03-29 15:22] LABS: Iron 21 mcg/dL (30-160); Percent Iron Saturation 5 % (15-50); Total Iron Binding Capacity 443 mcg/dL (228-428); Unsaturated Iron Binding 422 ug/dL
[2021-03-29 15:45] LABS: HCG Quantitative < 2 mIU/mL; TSH reflex Free T4 1.95 uIU/mL (0.32-4.0)
[2021-03-29 15:55] LABS: Estimated Average Glucose 105 mg/dL; Hemoglobin A1c % 5.3 %
[2021-03-30 05:48] LABS: CT PCR NOT DETECTED (Not Detect.); NG PCR NOT DETECTED (Not Detect.)
[2021-04-01 11:11] LABS: HPV mRNA E6/E7 rflx Not Detected (Not Detected)
== END 2021-03-29 13:39 | disposition home or self-care (01) ==
LOC: HO.LAB 13:38
PROVIDERS: PCP Physician Assistant; Visit Provider Obstetrics & Gynecology
DX: Z01.419 Encounter for gynecological examination (general) (routine) without abnormal findings (principal); Z13.1 Encounter for screening for diabetes mellitus; Z11.3 Encounter for screening for infections with a predominantly sexual mode of transmission; Z11.51 Encounter for screening for human papillomavirus (HPV); N93.9 Abnormal uterine and vaginal bleeding, unspecified; D50.9 Iron deficiency anemia, unspecified
CPT/HCPCS: 36415; 58100; 83036; 83540; 84443; 84702; 85027; 87491; 87591; 87624; 88142; 88305; 99212

== ENCOUNTER → 2021-04-03 08:41 | Outpatient (BNVA) | payer OTHER, SELFPAY | PROVIDERS: PCP Physician Assistant; Visit Provider Obstetrics & Gynecology | DX: N93.9 Abnormal uterine and vaginal bleeding, unspecified (principal) | CPT/HCPCS: 99212 ==

== ENCOUNTER 2021-04-07 10:16 | Day surgery (SDC) | payer OTHER, SELFPAY ==
[2021-04-07] VITALS (8 sets, daily range): BP systolic 143–160; BP diastolic 73–98; PULSE 67–101; RESP 16–17; TEMP 36.6–36.8; O2SAT 99–100; BMI 36.5
--- NOTE | 2021-04-07 10:53 | MHC.SHP ---
Pre-Procedural Eval Section A Date of Service: 04/07/21 The patient is an INPATIENT: No Changes since office visit: No Cold of Flu in the past 2 weeks, No New Medical Problems, No Changes in Medication and No Patient answered all questions The History & Physical has been completed within 30 days and I have reviewed it.: Yes Section B Chief Complaint: AUB Allergies: Allergies Allergy/AdvReac Type Severity Reaction Status Date / Time almond Allergy Intermediate TONGUE Verified 03/29/21 13:49 SWELLING apple [Apple] Allergy Intermediate TONGUE Verified 03/29/21 13:49 SWELLING morphine [Morphine] Allergy Mild RASH, Verified 03/29/21 13:49 stomach upset acetaminophen [Percocet] Allergy Unknown stomach Verified 03/29/21 13:49 upset oxycodone [OXYCODONE] Allergy Unknown ITCHY Verified 03/29/21 13:49 aspirin AdvReac Unknown stomach Verified 03/29/21 13:49 upset apples Allergy Unknown anaphylaxis Uncoded 10/04/17 00:00 nuts Allergy Unknown anaphylaxis Uncoded 10/04/17 00:00 Plan Diagnosis/Plan: Unchanged I have reviewed the history and physical and performed a pertinent physical examination on my patient. No changes have occurred unless specified.
[2021-04-07 11:00] LABS: UPreg QC Valid YES; Urine Pregnancy NEGATIVE (NEGATIVE)
--- NOTE | 2021-04-07 11:07 | HO.ANESPROP2 ---
[facility] Active Problems Active Problems: All Active Problems (Updated 03/29/21 @ 14:11 by Michael Nolasco MD) Abnormal uterine bleeding (AUB) (Acute) Screening for hypercholesterolemia (Acute) Iron deficiency anemia (Acute) Screening for diabetes mellitus (DM) (Acute) Screening for hypothyroidism (Acute) Breast cancer screening (Acute) Obese (Acute) Heart palpitations (Acute) MORRIS (generalized anxiety disorder) (Acute) Past Medical History Medical History Urinary tract infection Family History Family History Mother DMII (diabetes mellitus, type 2) CAD (coronary artery disease) Surgical History Surgical History H/O bariatric surgery H/O tubal ligation Social History Social History Housing: Apartment Alcohol intake: never Patient Tobacco Use Status: Never used Tobacco Tobacco use type: Cigarette e-Cigarette/Vaping Use: Never Used Second Hand Smoke Exposure: No Use of substances other than those prescribed or required for medical reasons: No Are you DNR?: No Advance Directives: No Advance Directives Information Provided: Yes service: No Current occupational status: employed 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 Meds Allergies Allergy/AdvReac Type Severity Reaction Status Date / Time almond Allergy Intermediate TONGUE Verified 03/29/21 13:49 SWELLING apple [Apple] Allergy Intermediate TONGUE Verified 03/29/21 13:49 SWELLING morphine [Morphine] Allergy Mild RASH, Verified 03/29/21 13:49 stomach upset acetaminophen [Percocet] Allergy Unknown stomach Verified 03/29/21 13:49 upset oxycodone [OXYCODONE] Allergy Unknown ITCHY Verified 03/29/21 13:49 apples Allergy Unknown anaphylaxis Uncoded 10/04/17 00:00 nuts Allergy Unknown anaphylaxis Uncoded 10/04/17 00:00 Exam Exam Date and Time: April 07, 2021 1107 Height,Weight and Vital Signs: Height 4 ft 11 in Weight 82.1 kg Last Vital Signs Temp 98.2 F 04/07/21 10:47 Pulse 88 04/07/21 10:47 Resp 16 04/07/21 10:47 BP 158/73 H 04/07/21 10:47 Pulse Ox 100 04/07/21 10:47 Pertinent Lab Results Pertinent Lab Results: Laboratory Tests 04/07/21 10:45 Urine Test NEGATIVE Airway Mallampati Class: II TM Dist: >3cm Neck ROM: Full
[2021-04-07] MEDS: Lactated Ringers 1,000 ML 100 ML IVCONT (11:10)
--- NOTE | 2021-04-07 11:50 | P.OP_ITS ---
Operative Note Operative Note Date of Service: 04/07/21 Narrative: Preop diagnosis: Abnormal uterine bleeding Post Op Diagnosis: Same Op: Novasure Endometrial Ablation Anesthesia: GLMA Senior Manufacturing Supervisor: None QBL: Minimal Pathology: None Complications: None Procedure: The patient was put in the dorsal lithotomy position. She was prepped and draped in the usual sterile manner. Bimanual exam prior to prepping revealed a mobile, anteverted uterus. A speculum was placed in the vagina and the anterior lip of the cervix was grasped with a single toothed tenaculum and brought forward. Taking care not to enter deep into the uterus, a sound was passed inside to measure the length of the uterus and cervix. This length was found to be 8 cm. Next, Hegar dilator was inserted into the cervical os to measure the cervical length which was 3 cm. This yielded an endometrial cavity length of 6.5 cm. A series of Hegar dilators were then inserted sequentially into the cervical os up to a size of 5 mm. The Novasure device was then opened and tested; the fan deployed easily. The instrument was set to the correct cavity length and introduced into the uterine cavity. The fan was slowly deployed with gentle movements to ensure a snug fit within the cavity. The cavity width read 4.5 cm. The measurements were imported and a cavity check was done. The trumpet was then slid down to the cervix and the device was activated. The total burn time was 91 seconds. The fan was retracted and device removed. The fan was examined and revealed charred tissue. The tenaculum was removed and the cervix examined for hemostasis which was achieved using pressure. Finally the speculum was removed. The patient tolerated the procedure well and was brought to the recovery room in a stable condition. At the end of the procedure all sponges and instruments were counted and correct. The blood loss was minimal and there were no complications.
--- NOTE | 2021-04-07 11:50 | P.BOP_ITS ---
Brief Operative Note Date of Service: 04/07/21 Pre-op diagnosis: Abnormal uterine bleeding Post-op diagnosis: same Procedure: NovaSure Endometrial Ablation Surgeon: Michael Nolasco MD Anesthesia: GLMA Was an Hall Coordinator used for this Procedure?: No Estimated blood loss (mL): 0 Pathology: none sent Condition: stable Disposition: PACU
[2021-04-07] MEDS: ondansetron HCL 4 MG/2 ML VIAL IVPUSH (11:51)
[2021-04-07] MEDS: oxyCODONE HCl Immed Release 5 MG TABLET PO (12:01)
[2021-04-07] MEDS: fentaNYL citrate/PF 100 MCG/2 ML VIAL 50 MCG IVPUSH (12:01)
== END 2021-04-07 13:10 | disposition home or self-care (01) ==
PROVIDERS: PCP Physician Assistant; Visit Provider Obstetrics & Gynecology
PROC: (CPT 58353; principal; 2021-04-07 12:30)
DX: N93.9 Abnormal uterine and vaginal bleeding, unspecified (principal); D50.9 Iron deficiency anemia, unspecified; D64.9 Anemia, unspecified; Z88.8 Allergy status to other drugs, medicaments and biological substances; Z98.51 Tubal ligation status; Z87.440 Personal history of urinary (tract) infections; Z98.84 Bariatric surgery status
CPT/HCPCS: 58353; 81025; J1100; J1790; J2250; J2405; J2550; J3010

== ENCOUNTER → 2021-04-27 11:14 | Outpatient (BNVA) | payer OTHER, SELFPAY | PROVIDERS: PCP Physician Assistant; Visit Provider Obstetrics & Gynecology | DX: N93.9 Abnormal uterine and vaginal bleeding, unspecified (principal) | CPT/HCPCS: 99212 ==

== ENCOUNTER 2021-05-01 14:11 | Outpatient (REF) | payer OTHER, SELFPAY ==
--- NOTE | ~2021-05-01 | MM_ITS ---
EXAMINATION: MM SCREENING DIGITAL BREAST TOMOSYNTHESIS, BILATERAL CLINICAL INFORMATION: Screening. Asymptomatic. Age 46. No prior breast imaging. No known family history breast cancer. The lifetime risk of breast cancer based on the Tyrer-Cuzick Model is 11%. COMPARISON: None (current study represents initial baseline exam). TECHNIQUE: Digital breast tomosynthesis is performed in both the craniocaudal and mediolateral oblique views along with computer-aided detection (CAD). Synthesized 2D images are generated from the tomosynthesis. Additional right CC view is provided. FINDINGS: There are scattered areas of fibroglandular density (ACR BI-RADS breast composition Category b). There are no significant masses, abnormal calcifications, or other abnormalities. The axilla and skin contours are unremarkable. MM/MM tomosynthesis screening BI IMPRESSION: No mammographic evidence of malignancy. ASSESSMENT: BI-RADS 1: Negative RECOMMENDATION: Routine annual mammography screening. This patient's information was entered into a reminder system with a target due date for their next mammogram.
== END 2021-05-01 14:12 | disposition home or self-care (01) ==
LOC: HO.MAMMO 14:11
PROVIDERS: PCP Physician Assistant; Visit Provider Obstetrics & Gynecology
DX: Z12.31 Encounter for screening mammogram for malignant neoplasm of breast (principal)
CPT/HCPCS: 77063; 77067

== ENCOUNTER → 2021-06-30 12:37 | Outpatient (REF) | payer OTHER, SELFPAY ==
--- NOTE | 2021-06-30 12:47 | ECG_ITS ---
Hook-up date: 2021-06-30 13:11:00 Duration: 47:59:00 Test Indications: PALPITATIONS Medications: 109122 QRS complexes 14 Ventricular ectopics which represent <1 % of total QRS comp. 10 Supraventricular ectopics which represent <1 % of total QRS comp. * Paced QRS complexs which represent % of total QRS comp. VENTRICULAR ECTOPY 14 Isolated 0 Bigeminal Cycles 0 Couplets 0 Runs 0 Beats in Runs * Beats LONGEST at * BPM at :: -- * Beats FASTEST at * BPM at :: -- SUPRAVENTRICULAR ECTOPY 10 Isolated 0 Couplets 0 Runs 0 Beats in Runs * Beats LONGEST at * BPM at :: -- * Beats FASTEST at * BPM at :: -- HEART RATES 47 MIN at 09:36:05 2021-07-01 79 AVG 128 MAX at 15:43:21 2021-07-01 LONGEST RR 1.3520 secs at 08:51:10 2021-07-02 S-T LEVELS Channel 1 - 128 mm at 13:11:00 2021-06-30 - 128 mm at 13:11:00 2021-06-30 Channel 2 - 128 mm at 13:11:00 2021-06-30 - 128 mm at 13:11:00 2021-06-30 Channel 3 - 128 mm at 03:23:01 -- - 128 mm at 03:23:01 Basic rhythm Normal sinus rhythm No long pause or profound bradycardia Rare ectopics. Patient reported dizzines correlated with NSR Referred By: Sylvester Chilel Overread By: STEFF MORALES MD
[2021-06-30 13:00] LABS: MANUAL DIFF FLAG NO
[2021-06-30 13:47] LABS: Basophils Percent Auto 0.6 % (0-2); Eosinophils Absolute Auto 0.2 X10*3/uL (0.0-0.4); Eosinophils Percent Auto 2.5 % (0-4); Hemoglobin 12.4 g/dl (12.0-16.0); Imm Gran Abs Auto 0.02 X10*3/uL (0.00-0.03); Imm Gran Pct Auto 0.3 % (0.0-0.4); Lymphocytes Absolute Auto 1.4 X10*3/uL (1.2-4.9); Lymphocytes Percent Auto 19.9 % (20-40); Mean Corpuscular HGB Conc 31.8 g/dl (31.0-35.0); Mean Corpuscular Hemoglobin 26.6 pg (27.0-33.0); Mean Corpuscular Volume 83.5 fL (80.0-98.0); Mean Platelet Volume 10.7 fL (9.4-12.3); Monocytes Absolute Auto 0.5 X10*3/uL (0.1-1.2); Monocytes Percent Auto 7.1 % (2-11); Neutrophils Absolute Auto 4.7 x10*3/uL (2.0-8.3); Neutrophils Percent Auto 69.6 % (45-73); Platelet Count 257 X10*3/uL (160-400); Red Blood Count 4.67 X10*6/uL (4.20-5.50); Red Cell Distribution Width 14.7 % (11.0-16.0); White Blood Count 6.8 X10*3/uL (4.8-10.8)
[2021-06-30 14:19] LABS: Alanine Aminotransferase 13 U/L (0-31); Albumin Level 4.1 g/dL (3.5-5.0); Alkaline Phosphatase 55 U/L (39-117); Anion Gap 11 (12-20); Aspartate Amino Transferase 16 U/L (5-31); Bilirubin Total 0.4 mg/dL (0.0-1.0); Blood Urea Nitrogen 14 mg/dL (9-16); Calcium 9.2 mg/dL (8.4-10.2); Carbon Dioxide 23 mmol/L (22-29); Chloride 109 mmol/L (96-108); Cholesterol 179 mg/dL; Estimated Glomerular Filt Rate > 60; Glucose Fasting 93 mg/dL (60-99); HDL Cholesterol 50 mg/dL; Iron 37 mcg/dL (30-160); LDL Cholesterol Calculated 109 mg/dl; Potassium 4.5 mmol/L (3.3-5.1); Sodium 138 mmol/L (135-145); Total Protein 7.6 g/dL (6.5-8.0); Triglycerides 102 mg/dL
[2021-06-30 14:20] LABS: Percent Iron Saturation 8 % (15-50); Total Iron Binding Capacity 436 mcg/dL (228-428); Unsaturated Iron Binding 399 ug/dL
[2021-06-30 14:40] LABS: TSH reflex Free T4 1.47 uIU/mL (0.32-4.0)
== END ==
LOC: HO.CARD 12:37
PROVIDERS: PCP Physician Assistant; Visit Provider Physician Assistant
DX: Z13.29 Encounter for screening for other suspected endocrine disorder (principal); Z13.220 Encounter for screening for lipoid disorders; R00.2 Palpitations; D50.9 Iron deficiency anemia, unspecified; N93.9 Abnormal uterine and vaginal bleeding, unspecified
CPT/HCPCS: 36415; 80053; 80061; 83540; 84443; 85025; 85027; 93225; 93226

== ENCOUNTER 2022-06-04 10:04 | Outpatient (REF) | payer OTHER, SELFPAY ==
--- NOTE | ~2022-06-04 | MM_ITS ---
EXAMINATION: MM SCREENING DIGITAL BREAST TOMOSYNTHESIS, BILATERAL CLINICAL INFORMATION: Screening. Asymptomatic. The lifetime risk of breast cancer based on the Tyrer-Cuzick Model is 10.6%. COMPARISON: Mammography: May 01, 2021 TECHNIQUE: Digital breast tomosynthesis is performed in both the craniocaudal and mediolateral oblique views along with computer-aided detection (CAD). Synthesized 2D images are generated from the tomosynthesis. FINDINGS: The breasts are heterogeneously dense, which may obscure small masses (ACR BI-RADS breast composition Category c). There are no significant masses, abnormal calcifications, or other abnormalities. MM/MM tomosynthesis screening BI IMPRESSION: No significant changes from prior exam. ASSESSMENT: BI-RADS 1: Negative RECOMMENDATION: Routine annual mammography screening. This patient's information was entered into a reminder system with a target due date for their next mammogram.
== END 2022-06-04 10:05 | disposition home or self-care (01) ==
LOC: HO.MAMMO 10:04
PROVIDERS: PCP Physician Assistant; Visit Provider Obstetrics & Gynecology
DX: Z12.31 Encounter for screening mammogram for malignant neoplasm of breast (principal)
CPT/HCPCS: 77063; 77067

== ENCOUNTER 2023-09-17 09:13 | Outpatient (AMB) | payer OTHER, SELFPAY ==
[2023-09-17 09:19] VITALS: BP 112/76; PULSE 82; TEMP 36.9; O2SAT 98; BMI 34.4
--- NOTE | 2023-09-17 09:19 | AM.OFFWIN_ITS ---
Intake Vital Signs 09/17/23 09:19 Height 5 ft 2 in Weight 188 lb BMI 34.4 BP 112/76 Blood Pressure Location Lt brachial Position Sitting Pulse 82 Pulse Source Pulse Oximeter Temp 98.5 F Temp Source Oral Pulse Oximetry (%) 98 Oxygen Delivery Method Room Air Intake Visit Reasons: EP Head Pressure, Unable to hear RT ear Intake Note: pt is here for c/o head pressure, unable to hear from RT ear Patient Tobacco Use Status: Never used Tobacco Allergies almond Allergy (Intermediate, Verified 09/17/23 09:20) TONGUE SWELLING apple [Apple] Allergy (Intermediate, Verified 09/17/23 09:20) TONGUE SWELLING morphine [Morphine] Allergy (Mild, Verified 09/17/23 09:20) RASH, stomach upset acetaminophen [Percocet] Allergy (Unknown, Verified 09/17/23 09:20) stomach upset oxycodone [OXYCODONE] Allergy (Unknown, Verified 09/17/23 09:20) ITCHY sertraline [From Zoloft] Adverse Reaction (Intermediate, Verified 09/17/23 09:20) dry mouth apples Allergy (Unknown, Uncoded 06/19/21 14:24) anaphylaxis nuts Allergy (Unknown, Uncoded 06/19/21 14:24) anaphylaxis Do you need a note to return to daycare/school/sports/work: Yes HPI HPI Comments History of Present Illness Details 48-year-old female presents today compla ining of hearing loss in her right ear after having ear pain for for 5 days. The patient used Vicks vapor rub and put a cotton ball in her ear for a few days. The pain has resolved but now she can not hear out of her ear. 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 Reproductive History Menstrual Age of Menarche: 13 Review of Systems Const All systems reviewed & are unremarkable except as noted in HPI and below Physical Exam Vital Signs: Last Vital Signs Temp 98.5 F 09/17/23 09:19 Pulse 82 09/17/23 09:19 BP 112/76 09/17/23 09:19 Pulse Ox 98 09/17/23 09:19 Oxygen Delivery Method Room Air 09/17/23 09:19 BMI result Body Mass Index 34.4 HEENT Head: Yes normal to inspection, Yes normocephalic and Yes atraumatic Ears: Abnormal EAC present erythema, hearing grossly impaired on the right and TM abnormal erythematous and perforated General nose exam: Normal external nose present Resp Effort & Inspection: normal respiratory effort Auscultation: clear to auscultation bilaterally Cardio Rate: regular rate Rhythm: regular rhythm Heart sounds: S1 normal heart sound present and S2 normal heart sound present Assessment & Plan Assessment & Plan (1) Otitis media: Comment: The patient was put on antibiotic by mouth and drops to treat the perforation. I discussed no submersion of her head or flying for the next few weeks follow up with her PCP Code(s): H66.90 - Otitis media, unspecified, unspecified ear (2) Perforated tympanic membrane: Code(s): H72.90 - Unspecified perforation of tympanic membrane, unspecified ear Plan: See plan Plan See plan Medications: New [id number] 3.5-10,000-1 mg/mL-unit/mL-% 4 drps otic (ear) right TID 5 days 10 mL 0RF amoxicillin 875 mg PO BID 7 days 14 tabs 0RF Coding Level of Care Code Est Pt Level 3 (86121) Diagnoses Otitis media H66.90 Perforated tympanic membrane H72.90
== END 2023-09-17 10:06 | disposition home or self-care (01) ==
PROVIDERS: PCP Physician Assistant; Visit Provider Physician Assistant Medical
DX: H66.90 Otitis media, unspecified, unspecified ear (principal); H72.90 Unspecified perforation of tympanic membrane, unspecified ear
CPT/HCPCS: 99213